=== PATIENT | female | born 1940 | race Caucasian/White ===

== ENCOUNTER 2019-08-30 08:58 | Outpatient (CLI) | payer MEDICARE, MEDICAID, SELFPAY ==
--- NOTE | ~2019-08-30 | CT_ITS ---
EXAMINATION: CT abdomen pelvis wo con DATE: 08/30/2019 09:29 INDICATION: Microscopic hematuria TECHNIQUE: Computed tomography (CT) of the abdomen and pelvis was performed without intravenous contr ast. The dose-length product (DLP) was 361.79 mGy-cm. Automated exposure control and iterative recons truction technique were employed. COMPARISON: None FINDINGS: There is mild emphysema of the visualized lung bases. The heart size is normal. A calcified nodule of the left lower lobe is consistent with old granulomatous disease. Punctate calcifications in otherwise normal appearing liver and spleen likely represent healed granulomatous disease. The lopez creas and adrenal glands are normal. The gallbladder is surgically absent. There is mild atrophy of t he kidneys. No stones are identified in the kidneys, ureters, or bladder. There is no hydronephrosis or hydroureter. A tiny focus of gas is present in the urinary bladder which may be due to recent inst rumentation. There are phleboliths in the pelvis. The appendix is normal. No pathologically enlarged abdominal or pelvic lymph nodes are identified. There is calcified atherosclerosis of the aorta and m any of the other arteries. There is no free intraperitoneal gas or evidence of bowel obstruction. The re is mild lumbar spondylosis. IMPRESSION: 1. No CT correlate for the patient's symptoms. Reviewed, dictated and finalized at location A.
== END 2019-08-30 08:59 | disposition home or self-care (01) ==
PROVIDERS: PCP Internal Medicine; Visit Provider Urology
DX: R31.29 Other microscopic hematuria (principal)
CPT/HCPCS: 74176

== ENCOUNTER 2022-12-03 09:41 | Outpatient (CLI) | payer MEDICARE, MEDICAID, SELFPAY ==
--- NOTE | 2022-12-03 11:30 | NEURO_ITS ---
Impression: # Complains of numbness of feet. # Normal Nerve Conduction Study. # Normal needle/EMG. # Clinical correlation recommended, problem could be related to small fiber neuropathy or higher involvement. Nerve Conduction Studies Anti Sensory Summary Table Stim Site NR Peak (ms) P-T Amp (?V) Site1 Site2 Delta-P (ms) Dist (cm) Davon (m/s) Left Sup Fibular Anti Sensory (Ant Lat Mall) 14 cm 3.8 7.0 14 cm Ant Lat Mall 3.8 16.0 42 Right Sup Fibular Anti Sensory (Ant Lat Mall) 14 cm 3.2 6.3 14 cm Ant Lat Mall 3.2 16.0 50 Left Sural Anti Sensory (Lat Mall) Calf 3.5 18.9 Calf Lat Mall 3.5 16.0 46 Right Sural Anti Sensory (Lat Mall) Calf 4.5 8.6 Calf Lat Mall 4.5 18.0 40 Motor Summary Table Stim Site NR Onset (ms) O-P Amp (mV) Site1 Site2 Delta-0 (ms) Dist (cm) Davon (m/s) Left Peroneal Motor (Vastus Med) Ankle 3.7 2.3 Popit Ankle 7.7 37.0 48 Popit 11.4 1.8 Right Peroneal Motor (Vastus Med) Ankle 3.9 2.7 Popit Ankle 7.7 35.0 45 Popit 11.6 1.6 Left Tibial Motor (Abd Calabrese Brev) Ankle 4.3 3.1 Knee Ankle 7.8 37.0 47 Knee 12.1 1.3 Right Tibial Motor (Abd Calabrese Brev) Ankle 4.1 2.2 Knee Ankle 8.2 38.0 46 Knee 12.3 1.5 F Wave Studies NR F-Lat (ms) L-R F-Lat (ms) Left Peroneal (Mrkrs) (EDB) 48.67 0.12 Right Peroneal (Mrkrs) (EDB) 48.55 0.12 Left Tibial (Mrkrs) (Abd Hallucis) 49.70 0.98 Right Tibial (Mrkrs) (Abd Hallucis) 50.68 0.98 EMG Side Muscle Nerve Root Ins Act Fibs Amp Dur Recrt Comment Right AntTibialis Dp Br Fibular L4-5 Nml Nml Nml Nml Nml Right Gastroc Tibial S1-2 Nml Nml Nml Nml Nml Right Fibularis Long Sup Br Fibular L5-S1 Nml Nml Nml Nml Nml Right Flex Dig Long Tibial L5-S2 Nml Nml Nml Nml Nml Right Ext Dig Brev Dp Br Fibular L5, S1 Nml Nml Nml Nml Nml Left AntTibialis Dp Br Fibular L4-5 Nml Nml Nml Nml Nml Left Gastroc Tibial S1-2 Nml Nml Nml Nml Nml Left Fibularis Long Sup Br Fibular L5-S1 Nml Nml Nml Nml Nml Left Flex Dig Long Tibial L5-S2 Nml Nml Nml Nml Nml Left Ext Dig Brev Dp Br Fibular L5, S1 Nml Nml Nml Nml Nml MTDD
== END 2022-12-03 09:42 | disposition home or self-care (01) ==
PROVIDERS: PCP Internal Medicine; Visit Provider Neurological Surgery
DX: M47.896 Other spondylosis, lumbar region (principal)
CPT/HCPCS: 95886; 95910

== ENCOUNTER 2024-10-21 09:28 | Outpatient (CLI) | payer MEDICARE, MEDICAID, SELFPAY ==
--- OUTSIDE RECORDS SUMMARY | 2024-10-21 09:57 | XMS_ITS | Clinical Summary ---
Author Organization 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 Name Role Phone Tushar Macdonald MD Primary Care Provider [phone] Allergies Active Allergy Reactions Criticality Noted Date Comments Sulfadiazine 11/01/2019 Medications acetaminophen (TYLENOL) 500 MG tablet Take 500 mg by mouth Active albuterol HFA (PROVENTIL HFA;VENTOLIN HFA) 108 (90 Base) MCG/ACT inhaler Inhale 2 puffs Activ e brimonidine (ALPHAGAN) 0.2 % ophthalmic solution 1 Active cholecalciferol (VITAMIN D-3) 25 MCG (1000 UT) capsule Take 1,000 Units by mouth every morning Active dorzolamide-federico olol (COSOPT) 22.3-6.8 MG/ML ophthalmic solution dorzolamide 22.3 mg-timolol 6.8 mg/mL eye drops 1 Active famotidine (PEPCID) 20 MG tablet famotidine 20 mg tablet Active fluticasone-higinio meterol (Advair Diskus) 250-50 MCG/DOSE diskus inhaler Advair Diskus 250 mcg-50 mcg/dose powder for inhalation INHALE ONE PUFF BY MOUTH TWICE DAILY 0 Active latanoprost (XALATAN) 0.005 % ophthalmic solution latanoprost 0.005 % eye drops 1 Active losartan (COZAAR) 25 MG tablet Take 100 mg by mouth at bed time Active moxifloxacin (Vigamox) 0.5 % ophthalmic solution Vigamox 0.5 % eye drops Active prednisoLONE acetate (PRED FORTE) 1 % ophthalmic suspension prednisolone acetate 1 % eye drops,suspension Active calcitriol (ROCALTROL) 0.25 MCG capsule Take 1 capsule (0.25 mcg total) by mouth 1 (one) time each day 90 capsule 1 5 Active carvedilol (COREG) 12.5 MG tablet TAKE 1 TABLET (12.5 MG TOTAL) BY MOUTH IN THE MORNING AND IN THE EVENING WITH MEALS 180 tablet 1 5 Active torsemide (DEMADEX) 20 MG tablet TAKE 1&1/2 TABLETS BY MOUTH EVERY MORNING 135 tablet 1 5 Active atorvastatin (LIPITOR) 20 MG tablet TAKE 1 TABLET (20 MG TOTAL) BY MOUTH ONE TIME EACH DAY 90 tablet 1 5 Active Encounters Date Type Department Care Team Description 09/14/2024 Refill [facility], [address] [phone] Elmer Reyes DO 09/07/2024 1:00 PM CDT Office Visit [facility], [address] [place] [address] Elmer Reyes DO Chronic kidney disease, stage 4 (severe) (HCC) (Primary Dx); Iron deficiency anemia, not otherwise specified; Simple chronic bronchitis (HCC); Hypertensive chronic kidney disease; Coronary artery disease due to calcified coronary lesion; Diabetes mellitus screening; Pure hypercholesterolemia, not otherwise specified; Secondary hyperparathyroidism of renal origin (HCC) 09/01/2024 Orders Only [facility] [address] [phone] Elmer Reyes DO from Last 3 Months Family History Medical History Relation Comments Heart disease Father Heart disease Mother Relation Status Comments Father Mother Social History Tobacco Use Types Packs/Day Years Used Date Smoking Tobacco: Former Smokeless Tobacco: Never Comments:Smoking History Inf o:Every day Alcohol Use Standard Drinks/Week Comments No 0 (1 standard drink = 0.6 oz pur e alcohol) Comments Unknown Sex and Gender Information Value Date Recorded Sex Assigned at Not on file Legal Sex Female 2:52 PM EDT Gender Identity Not on file Sexual Orientation Not on file Last Filed Vital Signs Vital Sign Reading Time Taken Comments Blood Pressure 120/60 09/07/2024 12:42 PM CDT Pulse 77 09/07/2024 12:42 PM CDT Temperature 36.7 C (98 F) 09/07/2024 12:42 PM CDT Respiratory Rate 18 09/07/2024 12:42 PM CDT Oxygen Saturation 99% 09/07/2024 12:42 PM CDT Inhaled Oxygen Concentration - - Weight 88.5 kg (195 lb) 09/07/2024 12:42 PM CDT Height 152.4 cm (5') 05/25/2024 1:59 PM CDT Body Mass Index 38.08 05/25/2024 1:59 PM CDT Plan of Treatment Upcoming Encounters Date Type Department Care Team (Late st Contact Info) Description 12/14/2024 1:45 PM CDT Office Visit [facility], [facility] [address] [facility] [address] [place] [phone] Elmer Reyse DO [address] [facility] [address] [place] [phone] Health Maintenance Due Date Last Done Comments Diabetes: Ophthalmology Exam 11/06/2021 Diabetes: Pedal Pulse Checked 11/06/2021 Diabetes: Sensory Foot Exam 11/06/2021 Diabetes: Visual Foot Exam 11/06/2021 Influenza Vaccine (#1) 2024 9, 01/20/2018, 04/25/2017, Additional history exists Diabetes: Hemoglobin A1C 12/02/2024 09/01/2024 Pneumococcal Vaccine: 50+ Years Completed 06/15/2015, 06/15/2015, 11/21/2011, Additional history exists Hepatitis B Vaccine Aged Out No longe r eligible based on patient's age to complete this topic Procedures Procedure Name Priority Date/Time Associated Diagnosis Comments HEMOGLOBIN A1C Routine 09/01/2024 8:08 AM CDT PROTEIN / CREATININE RATIO, URINE Routine 09/01/2024 8:08 AM CDT VITAMIN D 25 HYDROXY Routine 09/01/2024 8:08 AM CDT CYSTATIN C WITH EGFR Routine 09/01/2024 8:08 AM CDT CBC AND DIFFERENTIAL Routine 09/01/2024 8:08 AM CDT URINALYSIS WITH MICROSCOPIC Routine 09/01/2024 8:08 AM CDT URINE ALBUMIN / CREATININE RATIO Routine 09/01/2024 8:08 AM CDT RENAL FUNCTION PANEL Routine 09/01/2024 8:08 AM CDT MAGNESIUM Routine 09/01/2024 8:08 AM CDT PTH, INTACT AND CALCIUM Routine 09/01/2024 8:08 AM CDT from Last 3 Months Results * (ABNORMAL) Cystatin C w/GFR (09/01/2024 8:08 AM CDT) Cystatin C 2.62(H) 0.52 - 1.07 mg/L [facility] eGFR (Calc) 19(L) > OR = 60 mL/min/1.73 m2 [facility] 09/01/2024 8:08 AM CDT 09/01/2024 8:19 AM CDT Narrative Resulting Agency Comment Performing Organization Information: Site ID: DC Name: [email or web address] Address: [address] [place] [address] Director: Lizbeth Chou MD us Elmer Reyes DO LAB BLOOD ORDERABLES Final R esult [facility] [address] [place] [address] * (ABNORMAL) PTH, Intact and Calcium (09/01/2024 8:08 AM CDT) Parathyroid Hormone, Intact 113(H) 16 - 77 pg/mL [facility] Comment: Interpretive Guide Intact PTH Calcium ------- Normal Parathyroid Normal Normal Hypoparathyroidism Low or Low Normal Low Hyperparathyroidism Primary Normal or High High Secondary High Normal or Low Tertiary High High Non-Parathyroid Hypercalcemia Low or Low Normal High Calcium 9.3 8.6 - 10.4 mg/dL [facility] 09/01/2024 8:08 AM CDT 09/01/2024 8:19 AM CDT Narrative Resulting Agency Comment Performing Organization Information: Site ID: ELIEZER Name: [facility] Address: [address] [place] [phone] Director: Lizbeth Chou MD Elmer Reyes DO LAB BLOOD ORDERABLES Final R esult [facility] [phone] * Protein, Total, Random Urine w/Creatinine (Protein/Creat Ratio) (09/01/2024 8:08 AM CDT) Creatinine, Ur 108 20 - 275 mg/dL [facility] Urine Protein/Creatin ine Ratio 130 24 - 184 mg/g creat [facility] Protein/Creatin ine Ratio, Urine 0.130 0.024 - 0.184 mg/mg creat [facility] Protein Urine Random 14 5 - 24 mg/dL [facility] 09/01/2024 8:08 AM CDT 09/01/2024 8:19 AM CDT Narrative Resulting Agency Comment Performing Organization Information: Site ID: ELIEZER Name: [facility] Address: [address] [place] [address] Director: Lizbeth Chou MD Elmer Reyes DO LAB URINE ORDERABLES Final R esult Performing Organization Address [facility] Co de Phone Number [facility] [address] [place] [address] * Urine Albumin / Creatinine Ratio (09/01/2024 8:08 AM CDT) Creatinine, Ur 108 20 - 275 mg/dL [facility] Urine Microalbumin 0.7 See Note: mg/dL [facility] Comment: Reference Range: Reference Range Not established Microalb/Creat Ratio 6 <30 mg/g creat [facility] Comment: The ADA defines abnormalities in albumin excretion as follows: Albuminuria Category Result (mg/g creatinine) Normal to Mildly increased <30 Moderately increased 30-299 Severely increased > OR = 300 The ADA recommends that at least two of three specimens collected within a 3-6 month period be abnormal before considering a patient to be within a diagnostic category. 09/01/2024 8:08 AM CDT 09/01/2024 8:19 AM CDT Narrative Resulting Agency Comment Performing Organization Information: Site ID: [place] Name: [facility] Address: [address] [place] [address] Director: Lizbeth Chou MD Elmer Reyes DO LAB URINE ORDERABLES [facility] Performing Organization Address [facility] Co de Phone Number [facility] [place] [id number] [place] [phone] * Vitamin D 25 Hydroxy (09/01/2024 8:08 AM CDT) Vitamin D, 25-OH, Total, IA 65 30 - 100 ng/mL [facility] Comment: Vitamin D Status 25-OH Vitamin D: Deficiency: <20 ng/mL Insufficiency: 20 - 29 ng/mL Optimal: > or = 30 ng/mL For 25-OH Vitamin D testing on patients on D2-supplementation and patients for whom quantitation of D2 and D3 fractions is required, the [facility]TM) 25-OH VIT D, (D2,D3), LC/MS/MS is recommended: order code 59679 (patients >2yrs). See Note 1 Note 1 For additional information, please refer to http://education.[employer] [place]/faq/KGH385 (This link is being provided for informational/ educational purposes only.) 09/01/2024 8:08 AM CDT 09/01/2024 8:19 AM CDT Narrative Resulting Agency Comment Performing Organization Information: Site ID: DC Name: [facility] Address: [address] [facility] [place] [address] Director: Lizbeth Chou MD us Elmer Reyes DO LAB BLOOD ORDERABLES Final R esult [facility] [address] [place] [address] * (ABNORMAL) Urinalysis with microscopic (09/01/2024 8:08 AM CDT) Color, Urine YELLOW YELLOW [facility] Appearance Urine CLEAR CLEAR [facility] Specific [place], UA 1.017 1.001 - 1.035 [facility] pH Urine 6.0 5.0 - 8.0 [facility] Glucose, Ur NEGATIVE NEGATIVE [facility] Bilirubin, Urine NEGATIVE NEGATIVE [facility] Ketones, Urine NEGATIVE NEGATIVE [facility] Hemoglobin Ur Ql Strip NEGATIVE NEGATIVE [facility] Protein, Ur NEGATIVE NEGATIVE [facility] Nitrite, Urine NEGATIVE NEGATIVE [facility] WBC Esterase Urine NEGATIVE NEGATIVE [facility] WBC, Urine NONE SEEN < OR = 5 /HPF [facility] RBC, Urine 0-2 < OR = 2 /HPF [facility] Epithelial Cells in Urine 6-10(A) < OR = 5 /HPF [facility] Trans Epithelial, Urine CANCELED < OR = 5 /HPF [facility] Comment:Result canceled by reuben mckeon. Renal Epithelial Cells, Urine CANCELED < OR = 3 /HPF [facility] Comment:Result canceled by t he ancillary. Bacteria NONE SEEN NONE SEEN /HPF [facility] Calcium Oxalate Crystals, Urine CANCELED NONE OR FEW /HPF [facility] Comment:Result canceled by t he ancillary. Triple Phosphate Crystals, Urine CANCELED NONE OR FEW /HPF [facility] Comment:Result canceled by t he ancillary. Uric Acid Crystals, Urine CANCELED NONE OR FEW /HPF [facility] Comment:Result canceled by t he ancillary. Amorphous Sediments CANCELED NONE OR FEW /HPF [facility] Comment:Result canceled by t he ancillary. Crystals CANCELED NONE SEEN /HPF [facility] Comment:Result canceled by t he ancillary. Hyaline Casts, Urine 0-5(A) NONE SEEN /LPF [facility] Granular Casts, Urine CANCELED NONE SEEN /LPF [facility] Comment:Result canceled by t he ancillary. Casts CANCELED NONE SEEN /LPF [facility] Comment:Result canceled by t he ancillary. Yeast, UA CANCELED NONE SEEN /HPF [facility] Comment:Result canceled by t he ancillary. Note: [facility] Comment: This urine was analyzed for the presence of WBC, RBC, bacteria, casts, and other formed elements. Only those elements seen were reported. 09/01/2024 8:08 AM CDT 09/01/2024 8:19 AM CDT Narrative Resulting Agency Comment Performing Organization Information: Site ID: DC Name: Bennett [facility]child Address: [address] [address] Director: Lizbeth Chou MD us Elmer Reyes DO LAB URINE ORDERABLES Final R esult [facility] [address] [address] * (ABNORMAL) CBC and Differential (09/01/2024 8:08 AM CDT) [facility] WBC 8.2 3.8 - 10.8 Thousand/ uL [facility] RBC 3.57(L) 3.80 - 5.10 Million/u L [facility] Hemoglobin 9.9(L) 11.7 - 15.5 g/dL [facility] Hematocrit 32.4(L) 35.0 - 45.0 % [facility] MCV 90.8 80.0 - 100.0 fL [facility] MCH 27.7 27.0 - 33.0 pg [facility] MCHC 30.6(L) 32.0 - 36.0 g/dL [facility] Comment: For adults, a slight decrease in the calculated MCHC value (in the range of 30 to 32 g/dL) is most likely not clinically significant; however, it should be interpreted with caution in correlation with other red cell parameters and the patient's clinical condition. RDW 14.6 11.0 - 15.0 % [facility] Platelets 215 140 - 400 Thousand/ uL [facility] MPV 10.5 7.5 - 12.5 fL [facility] Neutrophils Absolute 5,929 1,500 - 7,800 cells/uL [facility] Band Neutrophils Absolute, Manual Count CANCELED 0 - 750 cells/uL [facility] Comment:Result canceled by t he ancillary. Metamyelocytes Absolute CANCELED 0 cells/uL [facility] Comment:Result canceled by t he ancillary. Absolute Myelocytes CANCELED 0 cells/uL [facility] Comment:Result canceled by t he ancillary. Absolute Promyelocytes CANCELED 0 cells/uL [facility] Comment:Result canceled by t he ancillary. Lymphocytes Absolute 1,558 850 - 3,900 cells/uL [facility] Monocytes Absolute 484 200 - 950 cells/uL [facility] Eosinophils Absolute 189 15 - 500 cells/uL [facility] Basophils Absolute 41 0 - 200 cells/uL [facility] Blasts Absolute CANCELED 0 cells/uL [facility] Comment:Result canceled by t he ancillary. NRBC Absolute CANCELED 0 cells/uL [facility] Comment:Result canceled by t he ancillary. Neutrophils Relative 72.3 % [facility] Bands Absolute CANCELED % [facility] Comment:Result canceled by t he ancillary. Metamyelocytes Percent CANCELED % [facility] Comment:Result canceled by t he ancillary. Myelocytes Relative CANCELED % [facility] Comment:Result canceled by t he ancillary. Promyelocytes Relative CANCELED % [facility] Comment:Result canceled by t he ancillary. Lymphocytes 19.0 % [facility] Variant lymphocytes/100 WBC (Bld) CANCELED 0 - 10 % [facility] Comment:Result canceled by t he ancillary. Monocytes 5.9 % [facility] Eosinophils 2.3 % [facility] Basophils Relative 0.5 % [facility] Blasts CANCELED % [facility] Comment:Result canceled by t he ancillary. nRBC CANCELED 0 /100 WBC [facility] Comment:Result canceled by t he ancillary. Comment(s) CANCELED [facility] Comment:Result canceled by t he ancillary. 09/01/2024 8:08 AM CDT 09/01/2024 8:19 AM CDT Narrative Resulting Agency Comment Performing Organization Information: Site ID: Name: [facility] Address: [address] [address] Director: Lizbeth Chou Elmer Reyes DO LAB BLOOD ORDERABLES Final R esult [facility] [address] [address] * Magnesium (09/01/2024 8:08 AM CDT) Magnesium 2.0 1.5 - 2.5 mg/dL [facility] 09/01/2024 8:08 AM CDT 09/01/2024 8:19 AM CDT Narrative Resulting Agency Comment Performing Organization Information: Site ID: SL Name: [facility] Address: [address] [address] Director: Lizbeth Chou Elmer Reyes DO LAB BLOOD ORDERABLES Final R esult Performing Organization Address [facility] de Phone Number [facility] [address] [address] * (ABNORMAL) Hemoglobin A1c (09/01/2024 8:08 AM CDT) Hemoglobin A1C 6.4(H) <5.7 % of total Hgb [facility] Comment: For someone without known diabetes, a hemoglobin A1c value between 5.7% and 6.4% is consistent with prediabetes and should be confirmed with a follow-up test. For someone with known diabetes, a value <7% indicates that their diabetes is well controlled. A1c targets should be individualized based on duration of diabetes, age, comorbid conditions, and other considerations. This assay result is consistent with an increased risk of diabetes. Currently, no consensus exists regarding use of hemoglobin A1c for diagnosis of diabetes for children. 09/01/2024 8:08 AM CDT 09/01/2024 8:19 AM CDT Narrative Resulting Agency Comment Performing Organization Information: Site ID: SL Name: [facility] Address: [address] [address] Director: Lizbeth Chou Elmer Reyes DO LAB BLOOD ORDERABLES Final R esult Performing Organization Address [facility] Co de Phone Number [facility] [address] [phone] * (ABNORMAL) Renal Function Panel (09/01/2024 8:08 AM CDT) Glucose 107(H) 65 - 99 mg/dL [facility] Comment: Fasting reference interval For someone without known diabetes, a glucose value between 100 and 125 mg/dL is consistent with prediabetes and should be confirmed with a follow-up test. BUN 40(H) 7 - 25 mg/dL [facility] Creatinine 1.78(H) 0.60 - 0.95 mg/dL [facility] eGFR CKD-EPI CR 2020 28(L) > OR = 60 mL/min/1.7 3m2 Bennett GimenezNicholas Haddox RecordsJennifer Christensen BUN/Creatinine Ratio 22 6 - 22 (calc) [facility] Sodium 138 135 - 146 mmol/L [facility] Potassium 4.7 3.5 - 5.3 mmol/L [facility] Chloride 102 98 - 110 mmol/L [facility] Bicarbonate (CO2) 28 20 - 32 mmol/L [facility] Calcium 9.2 8.6 - 10.4 mg/dL [facility] Phosphorus 3.7 2.1 - 4.3 mg/dL [facility] Albumin 4.0 3.6 - 5.1 g/dL [facility] 09/01/2024 8:08 AM CDT 09/01/2024 8:19 AM CDT Narrative Resulting Agency Comment Performing Organization Information: Site ID: SL Name: [facility] Address: [address] [phone] Director: Lizbeth Chou Elmer Reyes DO LAB BLOOD ORDERABLES Final R esult [facility] [address] [address] from Last 3 Months [place] [address] [facility] Medicare Care Teams Wood Finisher Apprentice Relationship Specialty Start Date End Date Tushar Macdonald MD [address] [place] [address] PCP - General Internal Medicine 08/28/20
--- OUTSIDE RECORDS SUMMARY | 2024-10-21 09:57 | XMS_ITS | Clinical Summary ---
Author Organization [facility] Address [address] [place] [id number] Care Team Providers Care Music Instructor Name Role Phone Torres Finley MD Primary Care Provider [phone] Allergies Active Allergy Reactions Criticality Noted Date Comments Sulfa (Sulfonamide Antibiotics) Hives High 08/2020 Medications losartan (COZAAR) 100 mg tabletIndication s:hypertension Take 100 mg by mouth nightly 0 Active metoprolol XL (TOPROL-XL) 100 mg 24 hr tabletIndication s:hypertension Take 100 mg by mouth nightly 0 Active calcitRIOL (ROCALTROL) 0.25 mcg capsuleIndicatio ns:Vitamin D Deficiency Take 0.25 mcg by mouth 3 (three) times a week 1 Active cholecalciferol (Vitamin D3) 1,000 unit capsuleIndicatio ns:Vitamin D Deficiency Take 1,000 Units by mouth every morning Active acetaminophen (Tylenol Extra Strength) 500 mg tablet Take 500 mg by mouth every 6 (six) hours as needed for pain Active albuterol HFA (PROVENTIL HFA,VENTOLIN HFA,PROAIR HFA) 90 mcg/actuation inhalerIndicatio ns:Chronic Obstructive Pulmonary Disease Inhale 2 puffs every 6 (six) hours as needed for wheezing Active lisinopril-hydro CHLOROthiazide (ZESTORETIC) 20-12.5 mg per tablet lisinopril 20 mg-hydrochlorot hiazide 12.5 mg tablet TAKE ONE TABLET BY MOUTH TWICE DAILY Active furosemide (LASIX) 40 mg tablet 1 Active amLODIPine (NORVASC) 5 mg tablet amlodipine 5 mg tablet Active budesonide-formo teroL (SYMBICORT) 80-4.5 mcg/actuation inhaler Symbicort 80 mcg-4.5 mcg/actuation HFA aerosol inhaler Inhale 2 puffs twice a day by inhalation route for 30 days. 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 Bazan in 2 weeks - discussed IOP may spike with an intervention, ok to go back on drops or repeat dCPC if needed -plan to follow 6 months HVF/OCT OS - sooner for IOP spike with Dr. Bazan Assessment & Plan (10/23/2020 5:01 PM CDT): S/p dCPC OD - IOP at goal - plan to D/C cosopt - continue 1 class - IOP check [address] Bazan - follow 4-6 months, sooner for concerns HVF/OCT OS wnl, IOP at goal Assessment & Plan (07/07/2020 11:28 AM CDT): POM#3 s/p dCPC right eye (OD) - doing better, no pain - s/p PRP with Dr. aBzan as well - on 4 classes - IOP today 14 on 4 classes, D/C brim - plan to continue 3 classes - follow 3 months with HVF OS, OCT OU Assessment & Plan (05/08/2020 8:38 AM HAND WELT BUTTER): POW#4 s/p dCPC OD - doing better, no pain - s/p PRP with Dr. Bazan as well - stopped pred last week - on 4 classes - IOP today still too high - discussed repeat dCPC, too soon given risk of fpc hyptony in NVG patients - see if IOP improves as NVI continues to improve with retina treatment - follow 8 weeks, sooner for concern - If IOP still elevated in 8 weeks repeat dCPC OD Assessment & Plan (04/03/2020 5:56 PM HAND WELT BUTTER): Referred by Dr. Randal Bazan. 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 On Brim TID, Latanoprost, QHS, Cosopt BID all OD. No pain/N/V today. 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 Encounters Date Type Department Care Team Description 10/14/2024 1:36 PM CDT - 10/14/2024 11:59 PM CDT Hospital Encounter [facility] [address] [place] [address] Asymptomatic menopausal state Discharge Disposition: Discharge to home or self care from Last 3 Months Surgical History Surgery Date Site/Laterality Comments EYE SURGERY CATARACT EXTRACTION W/ INTRA OCULAR LENS IMPLANT 03/03/2013 - 03/02/2014 Right CATARACT EXTRACTION W/ INTRA OCULAR LENS IMPLANT 03/03/2012 - 03/02/2013 Left CHOLECYSTECTOMY HYSTERECTOMY 03/03/1969 - 03/02/1970 CYST REMOVAL Right right hand COLONOSCOPY Medical History Medical History Date Comments COPD (chronic obstructive pulmonary disease) Hypertension Chronic kidney disease Family History Medical History Relation Name Comments Anesthesia problems Neg Hx Social History Tobacco Use Types Packs/Day Years Used Date Smoking Tobacco: Former Cigarettes Q uit: 2013 Smokeless Tobacco: Never Alcohol Use Standard Drinks/Week Comments Not Currently 0 (1 standard drink = 0.6 oz pur e alcohol) Comments No Sex and Gender Information Value Date Recorded Sex Assigned at Not on file Legal Sex Female 11:24 AM HAND WELT BUTTER Gender Identity Not on file Sexual Orientation Not on file Obstetrics History Last Filed Vital Signs Vital Sign Reading Time Taken Comments Blood Pressure 157/60 04/06/2020 12:10 PM HAND WELT BUTTER Pulse 69 04/06/2020 12:10 PM HAND WELT BUTTER Temperature 36.2 C (97.2 F) 04/06/2020 12:00 PM HAND WELT BUTTER Respiratory Rate 21 04/06/2020 12:10 PM HAND WELT BUTTER Oxygen Saturation 97% 04/06/2020 12:10 PM HAND WELT BUTTER Inhaled Oxygen Concentration - - Weight 82.1 kg (181 lb) 04/06/2020 9:38 AM HAND WELT BUTTER Height 154.9 cm (5' 1) 04/06/2020 9:38 AM HAND WELT BUTTER Body Mass Index 34.2 04/06/2020 9:38 AM HAND WELT BUTTER Plan of Treatment Health Maintenance Due Date Last Done Comments Depression Screening 1942 Hepatitis B Screening 1960 Zoster Vaccine (1 of 2) 1992 Well Visit 65+ 11/14/2007 DTaP/Tdap/Td Vaccine (2 - Tdap) 02/19/2017 7 Fall Risk Assessment 04/06/2021 04/06/2020 Influenza Vaccine (#1) 2024 0, 01/21/2019, 01/20/2018, Additional history exists Osteoporosis Screening-Bone Density Scan 10/14/2026 10/14/2024 Pneumococcal vaccine 65+ Completed 016, 06/15/2015, 11/21/2011, Additional history exists Procedures Procedure Name Priority Date/Time Associated Diagnosis Comments DEXA AXIAL SKELETON BONE DENSITY 1 OR MORE SITES Schedule Routine, Read Routine (OP Routine) 10/14/2024 1:41 PM CDT Asymptomatic menopausal state from Last 3 Months Results * Dexa Axial Skeleton Bone Density 1 or 2 Site (10/14/2024 1:41 PM CDT) Anatomical Region Laterality Modality Body N/A Other 10/14/2024 2:57 PM CDT Narrative 10/14/2024 2:58 PM CDT EXAM DESCRIPTION: DEXA AXIAL SKELETON BONE DENSITY 1 OR MORE SITES REASON FOR STUDY: 83 y/o year old F with given history of: Postmenopausal status. History of prior fracture and rheumatoid arthritis. Patient has taken/is taking vitamin-D and calcium. 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 CLINICAL INFORMATION: Current height: 60.9 inches Maximum height: 61 inches Weight: 181 pounds Risk factors: Prior fracture and rheumatoid arthritis COMPARISON: None available FINDINGS: AP LUMBAR SPINE L1-L4: Total BMD is 0.984 g/cm2 T-score is -0.6 LEFT HIP: Total BMD is 0.709 g/cm2 T-score is -1.9 Femoral neck BMD is 0.571 g/cm2 T-score is -2.5 FRAX: FRAX not reported due to T-scores of hip, femoral neck and/or spine being at or below -2.5 (Osteoporosis). IMPRESSION: 1. Osteoporosis. REFERENCE: Bone mineral density: T-Score: Normal (T-score above or = -1.0) Low bone mass (T-score between -1.0 and -2.5) replaces the previously used term osteopenia Osteoporosis (T-score = or below -2.5) Z-Score: Within the expected range for age (Z-score above -2.0) Below the expected range for age (Z-score is -2.0 or below) Please see below follow up recommendations. Medical evaluation for secondary causes of low bone mineral density may be appropriate. FRAX is a World Health Organization validated fracture risk assessment tool that calculates a person's 10 year probability of a major osteoporosis related fracture and hip fracture. According to the National Osteoporosis Foundation guidelines, postmenopausal women and men age 50 or older with low bone mass and a 10 year probability of a major osteoporosis related fracture = or greater than 20% or a 10 year probability of a hip fracture = or greater than 3% should be considered for pharmacological treatment for the prevention of osteoporosis. For further information, including treatment recommendations, please refer to the 2019 ISCD Official Positions (http://www.iscd.org) and the NOF's Clinician's Guide to Prevention and Treatment of Osteoporosis (http://www.nof.org/professionals/clinical-guidelines) THIS IS AN ELECTRONICALLY VERIFIED FINAL REPORT 10/14/2024 2:58 PM - Electronically signed by Codi Cordon M.D. TW: TW Report ID: [id number] Reading Location: [id number] Procedure Note Codi Cordon MD - 10/14/2024 EXAM DESCRIPTION: DEXA AXIAL SKELETON BONE DENSITY 1 OR MORE SITES REASON FOR STUDY: 83 y/o year old F with given history of:Postmenopausal status. History of prior fracture and rheumatoid arthritis. Patient has taken/is taking vitamin-D and calcium. Timber Deadener/Model: [employer] Discovery SL (S/N [id number]) Facility LSC value of 0.022 for the AP spine, 0.027 for the femur, and0.023 for the forearm. CLINICAL INFORMATION: Current height: 60.9 inches Maximum height: 61 inches Weight: 181 pounds Risk factors: Prior fracture and rheumatoid arthritis COMPARISON: None available FINDINGS: AP LUMBAR SPINE L1-L4: Total BMD is 0.984 g/cm2 T-score is -0.6 LEFT HIP: Total BMD is 0.709 g/cm2 T-score is -1.9 Femoral neck BMD is 0.571 g/cm2 T-score is -2.5 FRAX: FRAX not reported due to T-scores of hip, femoral neck and/or spine beingat or below -2.5 (Osteoporosis). IMPRESSION: 1. Osteoporosis. REFERENCE: Bone mineral density: T-Score: Normal (T-score above or = -1.0) Low bone mass (T-score between -1.0 and -2.5) replaces thepreviously used term osteopenia Osteoporosis (T-score = or below -2.5) Z-Score: Within the expected range for age (Z-score above -2.0) Below the expected range for age (Z-score is -2.0 or below) Please see below follow up recommendations. Medical evaluation forsecondary causes of low bone mineral density may be appropriate. FRAX is a World Health Organization validated fracture risk assessmenttool that calculates a person's 10 year probability of a major osteoporosisrelated fracture and hip fracture. According to the National OsteoporosisFoundation guidelines, postmenopausal women and men age 50 or older with low bonemass and a 10 year probability of a major osteoporosis related fracture = or greater than 20% or a 10 year probability of a hip fracture = or greaterthan 3% should be considered for pharmacological treatment for the preventionof osteoporosis. For further information, including treatment recommendations, please referto the 2019 ISCD Official Positions (http://www.iscd.org) and the NOF's Clinician's Guide to Prevention and Treatment of Osteoporosis (http://www.nof.org/professionals/clinical-guidelines) THIS IS AN ELECTRONICALLY VERIFIED FINAL REPORT 10/14/2024 2:58 PM - Electronically signed by Codi Cordon M.D. TW: RASHAUN Report ID: [id number] Reading Location: [place] [address] Torres Finley MD IMG DXA PROCEDURES Final Re sult from Last 3 Months Insurance MEDICARE [facility] MEDICARE ADVANTAGE [facility] Address: [address] [address] [place] [address] [employer]PA Care Teams Music Instructor Relationship Specialty Start Date End Date Torres Finley MD PCP - General Internal Medicine 03/23/20
--- OUTSIDE RECORDS SUMMARY | 2024-10-21 09:57 | XMS_ITS | Encounter Summary ---
Author Organization [email or web address] [facility] Address [address] [facility] [place] [address] Phone Care Team Providers Care Management Developer Name Role Phone Tushar Macdonald MD Primary Care Provider [phone] Reason for Visit * Reason Comments Med Refill Encounter Details Date Type Department Care Team (Late st Contact Info) Description 10/11/2020 Refill Butts Code42, [facility] [address] [facility] [address] [place] [address] Elmer Reyes DO [address] [facility] [address] [place] [address] Social History Tobacco Use Types Packs/Day Years Used Date Smoking Tobacco: Former Comments:Smoking History Inf o:Every day Alcohol Use Standard Drinks/Week Comments No 0 (1 standard drink = 0.6 oz pur e alcohol) Comments Unknown Sex and Gender Information Value Date Recorded Sex Assigned at Not on file Legal Sex Female 2:52 PM EDT Gender Identity Not on file Sexual Orientation Not on file documented as of this encounter Plan of Treatment Upcoming Encounters Date Type Department Care Team (Late st Contact Info) Description 12/14/2024 1:45 PM CDT Office Visit Butts Code42, [facility] [address] [facility] [address] [place] [address] Elmer Reyes DO [address] [facility] [address] [place] [address] documented as of this encounter Visit Diagnoses Not on filedocumented in this encounter Care Teams Management Developer Relationship Specialty Start Date End Date Tushar Macdonald MD [facility] [place] [address] PCP - General Internal Medicine 08/28/20 documented as of this encounter
--- OUTSIDE RECORDS SUMMARY | 2024-10-21 09:57 | XMS_ITS | Clinical Summary ---
Author Organization [facility] Address [address] [place] [id number] Care Team Providers Care Aluminum Molder Name Role Phone Unavailable Primary Care Provider Unavailabl e Social History Tobacco Use Types Packs/Day Years Used Date Smoking Tobacco: Never Assessed Comments Unknown Sex and Gender Information Value Date Recorded Sex Assigned at Not on file Legal Sex Female 8:23 PM CDT Gender Identity Not on file Sexual Orientation Not on file Plan of Treatment Health Maintenance Due Date Last Done Comments DTaP, Tdap and Td Vaccines ( 1 - Tdap) 1961 Pneumococcal Vaccine: 50+ Ye ars (1 of 1 - PCV) 1992 Zoster Vaccines (1 of 2) 1992 Dexa Scan (General) 11/14/2007 RSV Immunization or 60+ Years (1 - 1-dose 75+ series) 2017 COVID-19 Vaccine (2023-2 5 season) 2023 Meningococcal B Vaccine Aged Out No l onger eligible based on patient's age to complete this topic Meningococcal Vaccine Aged Out No palomo temitope eligible based on patient's age to complete this topic RSV Immunizations Under 20 Months Aged Out No longer eligible based on patient's age to complete this topic
--- NOTE | 2024-10-21 14:43 | P.PCNPFT_ITS ---
PFT Procedure Performed PFT Procedure Performed Spirometry with Pre/Post Bronchodilator Plethysmography (Lung Vol) Diffusing Cap (DLCO) Flow Vol Loop PFT Interpretation This is a pulmonary function test with pre and post-bronchodilator spirometry, plethysmography and diffusing capacity. The test was performed and results interpreted in accordance with the 2019 and 2005 ATS/ERS Task Force guidelines respectively using the Global Lung Function Initiative-2012 reference equations. Patient demonstrated good effort and cooperation. Reproducibility criteria were met. The quality of the pre bronchodilator spirometry maneuver was Grade A and post bronchodilator spirometry maneuver was Grade A. Findings: Spirometry: There is decreased maximal expiratory airflow at all lung volumes with a concave expiratory flow tracing. The contour the inspiratory flow tracing is normal. The pre bronchodilator FVC is 1.78 L, 80% predicted. The pre bronchodilator FEV1 is 0.92 L, 54% predicted. The pre bronchodilator FEV1: FVC ratio is 51%. The post bronchodilator FVC is 1.66 L, representing a 7% decrease. The post bronchodilator FEV1 is 0.88 L, representing a 4% decrease. The post bronchodilator FEV1: FVC ratio is 53%. Plethysmography: The total lung capacity is 4.04 L, 89% predicted. The functional residual capacity is 2.63 L, 101% predicted. The residual volume is 2.21 L, 99% predicted. Diffusing capacity: The diffusing capacity unadjusted for hemoglobin and carboxyhemoglobin is 7.5, 42% predicted. The diffusing capacity adjusted for alveolar volume is 2.74, 64% predicted. Impression: There is a moderately severe obstructive abnormality. There is no significant improvement after inhaling a single dose of albuterol. The lung volumes are normal. The diffusing capacity unadjusted for hemoglobin and carboxyhemoglobin is moderately decreased and remains mildly decreased when adju sted for alveolar volume. There are no prior studies for comparison
== END 2024-10-21 09:29 | disposition home or self-care (01) ==
PROVIDERS: PCP Internal Medicine; Visit Provider Internal Medicine Pulmonary Disease
DX: J44.9 Chronic obstructive pulmonary disease, unspecified (principal); R94.2 Abnormal results of pulmonary function studies
CPT/HCPCS: 94060; 94726; 94729